=== PATIENT | male | born 1990 | race Caucasian/White ===

== ENCOUNTER 2019-11-12 16:27 | Emergency (ER) | payer OTHER ==
[2019-11-12 16:33] VITALS: BP 135/74; PULSE 86; TEMP 97.7; BMI 24.7
--- NOTE | 2019-11-12 17:39 | PDOC ---
History of Present Illness - General History Source: Patient Exam Limitations: No Limitations - History of Present Illness Initial Comments: 11/12/19 17:36 29-year-old male with history of axillary and scrotal abscesses in the past presents with pain and swelling to scrotum x4 days. Denies fever, chills, abdominal pain, urinary frequency, dysuria, hematuria, rectal pain or any other complaints. Patient denies history of sexually transmitted diseases. ROS: Scrotal swelling and pain PE: GENERAL: well-appearing, NAD HEAD: NCAT EYES: Pupils equal, round and reactive to light, sclera anicteric, conjunctiva clear ENT: pharynx: no erythema, no exudate, uvula midline NECK: supple CHEST: nontender RESP: clear, no w/r/r CARDIO: rrr, no m/g/r ABD: +BS, soft, nontender, non distended : Approximately 4 cm indurated area with fluctuant center to scrotum, no active drainage or bleeding noted, no penile discharge noted BACK: no CVAT EXTREMITIES: Normal range of motion, no edema NEUROLOGICAL: Normal speech, normal gait SKIN: Warm, Dry Is this a multiple visit Asthma Patient?: No <Ivana Miller - Last Filed: 11/12/19 18:50> <Hannah Ludwig - Last Filed: 11/14/19 11:21> - General Chief Complaint: Abscess Boil Stated Complaint: ABSCESS Time Seen by Provider: 11/12/19 16:47 Past History - Past Medical History COPD: No - Psycho Social/Smoking Cessation Hx Smoking History: Current every day smoker Information on smoking cessation initiated: No <Ivana Miller - Last Filed: 11/12/19 18:50> <Hannah Ludwig - Last Filed: 11/14/19 11:21> - Past Medical History Allergies/Adverse Reactions: Allergies Allergy/AdvReac Type Severity Reaction Status Date / Time No Known Allergies Allergy Verified 11/12/19 16:33 *Physical Exam - Vital Signs Last Vital Signs Temp Pulse Resp BP Pulse Ox 97.7 F 86 18 135/74 99 11/12/19 16:30 11/12/19 16:30 11/12/19 16:30 11/12/19 16:30 11/12/19 16:30 <Ivana Miller - Last Filed: 11/12/19 18:50> - Vital Signs Last Vital Signs Temp Pulse Resp BP Pulse Ox 97.7 F 86 18 135/74 99 11/12/19 16:30 11/12/19 16:30 11/12/19 16:30 11/12/19 16:30 11/12/19 16:30 <Hannah Ludwig - Last Filed: 11/14/19 11:21> ED Treatment Course - RADIOLOGY Radiology Studies Ordered: Category Date Time Status SCROTUM AND CONTENTS US [US] Stat Ultrasound 11/12/19 17:28 Ordered <Ivana Miller - Last Filed: 11/12/19 18:50> Medical Decision Making - Medical Decision Making 11/12/19 17:39 29-year-old male with scrotal abscess denies fever, chills, abdominal pain, rectal pain. Scrotal ultrasound urology consulted reassess 11/12/19 18:50 I discussed case with Dr. Hills who offered patient admission, IV antibiotics and OR drainage tomorrow however patient declines and rather see Dr. Hills tomorrow morning. Sent prescription for Augmentin to pharmacy Return precautions discussed Scrotal abscess noted on ultrasound <Ivana Miller - Last Filed: 11/12/19 18:50> - Medical Decision Making The patient was seen and evaluated in conjunction with midlevel provider under my direct supervision, ancillary studies were reviewed. I agree with the plan as outlined with ENRRIQUE miller. HPI, workup/dispo as outlined. VS reviewed, wnl. Nontoxic appearing. I also evaluated the patient at the bedside with midlevel, abdomen soft and nontender, he is well-appearing prior. There is a scrotal abscess measuring approximately 2 x 3 cm, fluctuant. Will consult with urology , Dr. Hills for management. As this is a sensitive area for incision and drainage, will need to defer to subspecialist. Patient elects for discharge and follow-up outpatient with him in the office, Augmentin for empiric coverage for infection. Scrotal elevation analgesia and pain control and warm compresses advised. 11/14/19 11:19 <Hannah Ludwig - Last Filed: 11/14/19 11:21> Discharge - Discharge Information Problems reviewed: Yes - Admission No <Ivana Miller - Last Filed: 11/12/19 18:50> <Hannah Ludwig - Last Filed: 11/14/19 11:21> - Discharge Information Clinical Impression/Diagnosis: Scrotal abscess Condition: Stable Disposition: HOME - Additional Discharge Information Prescriptions: Amox-Tr/K Cl [Augmentin - 875Mg Tablet] 1 tab PO BID #14 tablet - Follow up/Referral Referrals: Jensen Kaur MD [Primary Care Provider] - Boni Hills MD [Staff Physician] - - Patient Discharge Instructions Additional Instructions: Take Augmentin 875 1 tablet p.o. twice daily for 7-days You must see Dr. Falcon tomorrow at 9 AM located at [address] [place] [address], office # [phone] - Post Discharge Activity
== END 2019-11-12 18:54 | disposition home or self-care (01) ==
LOC: JERFT 16:27
DX: N49.2 Inflammatory disorders of scrotum (principal); F17.210 Nicotine dependence, cigarettes, uncomplicated
CPT/HCPCS: 76870-TC; 99284-25

== ENCOUNTER 2021-06-26 12:10 | Emergency (ER) | payer OTHER ==
[2021-06-26 12:37] VITALS: BP 128/77; PULSE 65; TEMP 97.7; BMI 23.9
[2021-06-26 15:01] LABS: CALCIUM 9.1 mg/dL (8.5-10.1); CHLORIDE 125 mmol/L (98-107); SODIUM 158 mmol/L (136-145)
[2021-06-26 15:02] LABS: ALBUMIN 4.1 g/dl (3.4-5.0); ANION GAP 5 MMOL/L (8-16); BLOOD UREA NITROGEN 9.3 mg/dL (7-18); CO2 28 mmol/L (21-32)
[2021-06-26 15:03] LABS: GLUCOSE,RANDOM 90 mg/dL (74-106)
[2021-06-26 15:05] LABS: CREATININE 0.8 mg/dL (0.55-1.3); SGOT/AST 13 U/L (15-37); SGPT/ALT 23 U/L (13-61)
[2021-06-26 15:07] LABS: BILIRUBIN,TOTAL 0.5 mg/dL (0.2-1); TOT PROT 7.9 g/dl (6.4-8.2)
[2021-06-26 15:08] LABS: ALK PHOS 76 U/L (45-117)
[2021-06-26 15:12] LABS: BASO % 0.9 % (0-2.0); EOS % 5.5 % (0-4.5); HEMATOCRIT 47.9 % (35.4-49); HEMOGLOBIN 16.5 GM/dL (11.7-16.9); LYMPH % 17.4 % (8-40); MCH 30.3 pg (25.7-33.7); MCHC 34.4 g/dl (32.0-35.9); MEAN PLT VOLUME 11.1 fl (7.5-11.1); MONO % 5.7 % (3.8-10.2); NEUT % 70.5 % (42.8-82.8); PLATELET COUNT 174 10^3/uL (134-434); RBC 5.44 M/mm3 (4.00-5.60); RDW 12.9 % (11.9-15.9); WHITE BLOOD COUNT 7.7 K/mm3 (4.0-10.0)
[2021-06-26 15:45] LABS: INR 0.94 (0.83-1.09)
[2021-06-26 15:48] LABS: ACTIVATED PTT 30.8 SECONDS (25.2-36.5)
== END 2021-06-26 15:21 | disposition home or self-care (01) ==
LOC: JER 12:10
DX: J98.01 Acute bronchospasm (principal)
CPT/HCPCS: 36415; 71046-TC-FY; 80053; 82550; 84484; 85025; 85379; 85610; 85730; 93005; 93010; 99283-25

== ENCOUNTER 2024-07-02 12:06 | Emergency (ER) | payer OTHER ==
[2024-07-02 12:22] VITALS: BP 157/85; PULSE 55; RESP 16; TEMP 97.7; BMI 23.6
[2024-07-02] MEDS: ONDANSETRON *ODT* 4 MG TABLET SL ONE (13:33)
[2024-07-02] MEDS ORDERED: ONDANSETRON *ODT* 4 MG TABLET ONE (13:34)
== END 2024-07-02 14:34 | disposition home or self-care (01) ==
LOC: JER 12:06
DX: A08.4 Viral intestinal infection, unspecified (principal); R11.2 Nausea with vomiting, unspecified; Z20.822 Contact with and (suspected) exposure to COVID-19
CPT/HCPCS: 0241U-QW; 99283-25; Q0162